=== PATIENT | male | born 1950 | race Caucasian/White ===

== ENCOUNTER → 2016-12-08 | Outpatient (CLI) | payer OTHER ==
--- NOTE | 2016-12-08 11:57 | DIAGNOSTIC IMAGING REPORT ---
RIGHT KNEE 2 VIEWS HISTORY: M25.561 Right knee [id number] Right COMPARISON: None. FINDINGS: There is no fracture or dislocation. Soft tissues are unremarkable. No radiopaque foreign bodies. No knee effusion. Mild osteoarthritis within the medial compartment of the knee. IMPRESSION: No fractures. Mild medial osteoarthritis. Electronically signed by: Derek Santana M.D. 12/08/2016 11:54 AM Dictated Date/Time: 12/08/2016 11:54 AM
== END | disposition home or self-care (01) ==
LOC: C.RAD1850 11:21
PROVIDERS: ATTEND Physician Assistant Medical
DX: M25.561 Pain in right knee (principal)

== ENCOUNTER → 2016-12-09 | Outpatient (CLI) | payer OTHER ==
--- NOTE | 2016-12-09 13:15 | DIAGNOSTIC IMAGING REPORT ---
Soft tissue ultrasound right knee RIGHT EXTREMITY NONVASCULAR LIMITED CLINICAL HISTORY: RT KNEE PAIN Right pain TECHNIQUE: Soft tissue ultrasound COMPARISON STUDY: None FINDINGS: Normal study IMPRESSION: Normal study. No evidence for cyst abscess or collection Electronically signed by: Santiago Castellanos M.D. 12/09/2016 1:13 PM Dictated Date/Time: 12/09/2016 1:12 PM
== END | disposition home or self-care (01) ==
LOC: C.ULTR 12:37
PROVIDERS: ATTEND Physician Assistant Medical
DX: M25.561 Pain in right knee (principal)

== ENCOUNTER → 2017-07-07 | Outpatient (CLI) | payer OTHER ==
[2017-07-07 09:43] LABS: ALT/SGPT 38 U/L (12-78); BLOOD UREA NITROGEN 11 mg/dl (7-18); BUN/CREATININE RATIO 13.1 (10-20); CALCIUM 8.6 mg/dl (8.5-10.1); CARBON DIOXIDE 29 mmol/L (21-32); CHLORIDE 107 mmol/L (98-107); CHOLESTEROL 167 mg/dl (0-200); CREATININE 0.84 mg/dl (0.60-1.40); GLUCOSE 94 mg/dl (70-99); POTASSIUM 3.9 mmol/L (3.5-5.1); SODIUM 142 mmol/L (136-145); TRIGLYCERIDES 170 mg/dl (0-150); VERY LOW DENSITY LIPOPROT CALC 34 mg/dl
[2017-07-07 09:54] LABS: ALB/GLOB RATIO 1.1 (0.9-2); ALKALINE PHOSPHATASE 75 U/L (45-117); AST/SGOT 22 U/L (15-37); CHOLESTEROL/HDL RATIO 3.2; HDL CHOLESTEROL 53 mg/dl; LDL CHOLESTEROL CALCULATED 80 mg/dl; PROSTATE SPECIFIC ANTIGEN 0.916 ng/ml (0.000-4.000)
[2017-07-07 10:17] LABS: BASO % 0.7 %; BASO ABS # 0.06 K/uL (0-0.2); COMPLETE YES; EOS % 1.7 %; HEMATOCRIT 46.3 % (42-52); IG% 0.1 %; LYMPH % 36.3 %; LYMPH ABS # 2.91 K/uL (1.2-3.4); MEAN CELL VOLUME 93.3 fL (80-100); MEAN CORPUSCULAR HEMOGLOBIN 31.7 pg (25-34); MEAN CORPUSCULAR HGB CONC 33.9 g/dl (32-36); MEAN PLATELET VOLUME 10.5 fL (7.4-10.4); MONO % 9.7 %; NEUT % 51.5 %; PLATELET COUNT 258 K/uL (130-400); RED BLOOD COUNT 4.96 M/uL (4.7-6.1); WHITE BLOOD COUNT 8.01 K/uL (4.8-10.8)
== END | disposition home or self-care (01) ==
LOC: C.LAB1850 07:10
PROVIDERS: ATTEND Internal Medicine Pulmonary Disease
DX: Z00.00 Encounter for general adult medical examination without abnormal findings (principal); T78.2XXA Anaphylactic shock, unspecified, initial encounter

== ENCOUNTER → 2018-04-05 | Outpatient (CLI) | payer OTHER ==
--- NOTE | 2018-04-05 12:01 | DIAGNOSTIC IMAGING REPORT ---
L RIBS UNILATERAL WITH PA CHEST CLINICAL HISTORY: Left anterior rib pain. COMPARISON STUDY: No previous studies for comparison. FINDINGS: Lung volumes are normal. No pneumothorax or pleural effusion is noted. Lungs are clear. There is no evidence for pulmonary edema. Cardiac size is within normal limits. No acute left rib fractures are identified. IMPRESSION: No pneumothorax. No acute left rib fractures identified. Electronically signed by: Erasto Brooks M.D. 04/05/2018 12:00 PM Dictated Date/Time: 04/05/2018 11:58 AM
== END | disposition home or self-care (01) ==
LOC: C.RAD1850 09:53
PROVIDERS: ATTEND Physician Assistant Medical
DX: R07.9 Chest pain, unspecified (principal)

== ENCOUNTER 2020-08-09 16:35 | Inpatient (IN) ==
[2020-08-09] MEDS ORDERED: SODIUM CHLORIDE 0.9% 1000ML 1,000 ML IV STA (16:48)
[2020-08-09] MEDS ORDERED: NITROGLYCERIN SL 0.4 MG/TAB TAB SL PRN ×2 (17:22→22:54)
[2020-08-09] MEDS ORDERED: ASPIRIN CHEW 324 MG PO STA (17:22)
--- NOTE | 2020-08-09 17:34 | XRay Report ---
XR chest 1V portable HISTORY: Atypical Chest Pain COMPARISON: Chest 04/05/2018. FINDINGS: No pneumothorax or no pleural effusions. The lungs are clear. No focal lung consolidations to suggest pneumonia. The cardiac silhouette is mildly enlarged. This has progressed in the interval. IMPRESSION: Mild cardiomegaly. ACT 112: Negative or not required by law. Electronically signed by: Derek Santana M.D. 08/09/2020 5:33 PM
[2020-08-09 17:43] LABS: Basophils # (auto) 0.02 K/uL (0-0.2); Basophils % (auto) 0.2 %; Eosinophils # (auto) 0.09 K/uL (0-0.5); Eosinophils % (auto) 0.7 %; Hematocrit (blood only) 46.1 % (42-52); Hemoglobin 15.8 g/dL (14.0-18.0); Immature Granulocytes # (auto) 0.03 K/uL (0.00-0.02); Immature Granulocytes % (auto) 0.2 %; Lymphocytes # (auto) 1.98 K/uL (1.2-3.4); Lymphocytes % (auto) 15.4 %; Mean Corpuscular Hemoglobin 31.5 pg (25-34); Mean Corpuscular Hgb Conc 34.3 g/dL (32-36); Mean Platelet Volume 10.4 fL (7.4-10.4); Monocytes # (auto) 1.26 K/uL (0.11-0.59); Monocytes % (auto) 9.8 %; Neutrophils % (auto) 73.7 %; Platelet Count 207 K/uL (130-400); RDW Coefficient of Variation 13.9 % (11.5-14.5); Red Blood Count 5.01 M/uL (4.7-6.1); White Blood Count 12.88 K/uL (4.8-10.8)
[2020-08-09 17:55] LABS: D Dimer 480 ug/L FEU (0-500); Partial Thromboplastin Ratio 1.1; Prothrombin Time 10.8 Seconds (9.0-12.0)
[2020-08-09 17:59] LABS: Alanine Aminotransferase 23 U/L (12-78); Aspartate Aminotransferase 14 U/L (15-37); BUN Creatinine Ratio 17.9 (10-20); Blood Urea Nitrogen 16 mg/dl (7-18); Calcium 8.7 mg/dl (8.5-10.1); Carbon Dioxide 26 mmol/L (21-32); Chloride 107 mmol/L (98-107); Creatinine Clr Calc Pharmacy 74.7 ml/min; Est GFR (African American) 100.4; Est GFR (Non-African American) 86.6; Glucose 98 mg/dl (70-99); Lipase 168 U/L (73-393); Potassium 3.8 mmol/L (3.5-5.1); Sodium 139 mmol/L (136-145)
[2020-08-09 18:04] LABS: Albumin Globulin Ratio 1.3 (0.9-2); Alkaline Phosphatase 69 U/L (45-117); Bilirubin,Total 0.6 mg/dl (0.2-1); Globulin 3.1 gm/dl (2.5-4.0); Total Protein 7.1 gm/dl (6.4-8.2); Troponin I < 0.015 ng/ml (0-0.045)
[2020-08-09] MEDS ORDERED: NITROGLYCERIN 2% OINTMENT 30GM TUBE EXT STA (19:43)
--- NOTE | 2020-08-09 20:23 | Emergency Department Note ---
Impression & Plan Chest pain, precordial, Atrial fibrillation, new onset, Leukocytosis ED Provider Note INFORMANT: Patient ED PROVIDER(S): Harrison Menjivar MD CHIEF COMPLAINT: Chest pain PLAN: Disposition: Admitted Condition: Good MEDICAL DECISION MAKING: Patient presented with chest pain. An ECG was performed and revealed new onset atrial fibrillation. There was no significant ST elevation or depression. Patient was given nitroglycerin sublingual and aspirin. This resolved his pain completely. He was still noted to be in A. fib. He was relatively well controlled in the right aspect. He had heart rates in the 80s to 90s. The fastest I saw him go was 110 but that was only for a few beats. The patient's chest x-ray was unremarkable. His CBC, chemistry panel and troponin were unremarkable except for a slight leukocytosis. The patient does not have any infectious symptoms. He has had no fever or flulike problems. Given the chest pain, new onset A. fib and his relief with nitroglycerin I feel that further management in the hospital is appropriate. [facility] Patient was evaluated in the ER and admitted for further management. Triage Nursing notes reviewed and agree them. Vital Signs: reviewed and remarkable for no significant abnormalities Differential diagnosis: Cardiac ischemia, aortic dissection, pulmonary embolism, pneumothorax, pneumonia, pericarditis, myocarditis, esophageal rupture, GERD, cholecystitis, pancreatitis, musculoskeletal, as well as other pathologies. Diagnostics interpreted by me: ECG: Twelve-lead ECG reveals atrial fibrillation with a rate of 98. No ST elevation or depression. No PACs or PVCs. When compared to April 2019 the A. fib is new. Cardiac Monitoring: Cardiac monitoring ordered by me: The patient was placed on continuous cardiac monitoring and observed. It revealed atrial fibrillation with rates ranging from 80-110 beats per minute. Imaging studies: Chest x-ray. Findings: A chest x-ray was performed and revealed no pneumothorax, effusion, infiltrate, pulmonary edema, free air under the diaphragm, or wide mediastinum. Impression: No acute disease. [facility]PI: The patient is a 70 year old male who presents to the Emergency Room with complaints of chest pain. This started about 4 hours ago and is persisting. The patient also notes the following associated symptoms, chest tightness. The patient has found no relieving factors. Current pain is rated as 5/10. The patient has no known coronary history. He does have a significant family histor y of cardiac disease. Pt denies LOC, headache, fevers, chills, diaphoresis, visual changes, neck pain, Covid exposure, loss of taste or smell, flulike symptoms, breathing difficulties, nausea, vomiting, abdominal pain, back pain, melena, hematochezia, urinary symptoms, numbness, weakness, lymphadenopathy, rash, or other complaints. ROS: See above HPI for pertinent positives & negatives. A total of 10 systems reviewed and were otherwise negative. PAST MEDICAL HISTORY:See Below, esophageal reflux PAST SURGICAL HISTORY:See Below, FAMILY HISTORY:See Below SOCIAL HISTORY:See Below, HOME MEDICATIONS:See Below ALLERGIES:See Below VITALS:See Below PHYSICAL EXAMINATION: GENERAL: Awake, alert, well-appearing, in no distress HENT: Normocephalic, atraumatic. Oropharynx unremarkable. EYES: Normal conjunctiva. Sclera non-icteric. NECK: Inspection normal. Non-tender. Supple. No nuchal rigidity. FROM. No masses. RESPIRATORY: Clear to auscultation. No wheezes. No rales. Normal respiratory effort. CARDIAC: Normal rate. Irregular rhythm. No murmurs. No rubs. Extremities warm and well perfused. Pulses equal. No JVD. GI: Soft, non-distended. No tenderness to palpation. No rebound or guarding. No masses. RECTAL: Deferred. MUSCULOSKELETAL: Atraumatic. Chest examination reveals no tenderness. The back is symmetrical on inspection without obvious abnormality. There is no CVA tenderness to palpation. No joint edema. LOWER EXTREMITIES: Calves are equal size bilaterally and non-tender. No edema. No discoloration. NEURO: Normal sensorium. No sensory or motor deficits noted. SKIN: No rash or jaundice noted. Harrison Menjivar MD Past Med/Surg History Medical History (Updated 08/09/20 @ 20:46 by Lawrence Graham DO) Anaphylaxis BPH (benign prostatic hyperplasia) Cervical disc disease Dyslipidemia Esophageal reflux Herpes zoster Lumbar radicular pain Lumbar radiculopathy Pneumonia Spinal stenosis Surgical History History of lymph node biopsy Family History Other Coronary heart disease Lung cancer Social History Smoking Status: Never smoker Hx Alcohol Use: Yes Hx Substance Use: No Preferred Language: Mongolian Communication Ability: Effective Hearing Ability: Normal Eyeglass Lens Cutter Required: No Beliefs That Will Affect Care: None marital status: Current Living Situation: Spouse Current Living Situation Comment: home with current occupational status: retired Feels Safe at Home: Yes Safety Concerns: Feels Safe At This Time Allergies Allergies Allergy/AdvReac Type Severity Reaction Status Date / Time bacitracin Allergy Unknown HAPPENED Verified 08/09/20 18:13 [From Neosporin SO LONG ([id number])] AGO-CAN'T REMEMBER neomycin Allergy Unknown HAPPENED Verified 08/09/20 18:13 [From Neosporin SO LONG ([id number])] AGO-CAN'T REMEMBER polymyxin B Allergy Unknown HAPPENED Verified 08/09/20 18:13 [From Neosporin SO LONG ([id number])] AGO-CAN'T REMEMBER Sulfa (Sulfonamide Allergy Unknown HAPPENED Verified 08/09/20 18:13 Antibiotics) SO LONG AGO-CAN'T REMEMBER Home Meds Home Medications Medication Instructions Recorded Confirmed acetaminophen 500 mg tablet 500 - 1,000 mg PO Q6H PRN 06/19/19 08/09/20 naproxen sodium [Aleve] 220 - 440 mg PO Q12H PRN 08/09/20 08/09/20 tadalafil 5 mg PO DAILY PRN 08/09/20 08/09/20 Results & Data (ED) Vital Signs Vital Signs - 24 hr 08/09/20 15:45 08/09/20 16:37 08/09/20 16:52 Temperature 36.8 C Temperature Source Oral Pulse Rate 92 H 99 H 101 H Pulse Rate from SpO2 Sensor Respiratory Rate 22 19 16 Respiratory Effort / Characteristics Non-Labored Respiratory Depth Normal Respiratory Pattern Regular Blood Pressure 146/93 H 173/128 H Blood Pressure Mean 113 143 Pulse Oximetry 98 Oxygen Delivery Method Room Air Sepsis Recent Fever Within 48 Hours No Sepsis New/Unexplained Change in Mental Status N/A Sepsis Action Taken by Nursing No Action Required 08/09/20 17:00 08/09/20 17:30 08/09/20 17:41 Temperature Temperature Source Pulse Rate 87 90 Pulse Rate from SpO2 Sensor Respiratory Rate 19 17 Respiratory Effort / Characteristics Respiratory Depth Respiratory Pattern Blood Pressure Blood Pressure Mean Pulse Oximetry Oxygen Delivery Method Room Air Sepsis Recent Fever Within 48 Hours Sepsis New/Unexplained Change in Mental Status Sepsis Action Taken by Nursing 08/09/20 18:00 08/09/20 18:30 08/09/20 18:53 Temperature Temperature Source Pulse Rate 96 H 82 89 Pulse Rate from SpO2 Sensor Respiratory Rate 17 17 21 Respiratory Effort / Characteristics Respiratory Depth Respiratory Pattern Blood Pressure 134/112 H Blood Pressure Mean 115 Pulse Oximetry Oxygen Delivery Method Sepsis Recent Fever Within 48 Hours Sepsis New/Unexplained Change in Mental Status Sepsis Action Taken by Nursing 08/09/20 18:54 08/09/20 19:00 08/09/20 20:00 Temperature Temperature Source Pulse Rate 90 111 H 93 H Pulse Rate from SpO2 Sensor 91 H Respiratory Rate 17 18 18 Respiratory Effort / Characteristics Respiratory Depth Respiratory Pattern Blood Pressure 145/107 H 151/105 H 144/105 H Blood Pressure Mean 123 122 109 Pulse Oximetry 96 Oxygen Delivery Method Sepsis Recent Fever Within 48 Hours Sepsis New/Unexplained Change in Mental Status Sepsis Action Taken by Nursing 08/09/20 20:15 08/09/20 20:30 Temperature Temperature Source Pulse Rate 92 H 107 H Pulse Rate from SpO2 Sensor 95 H 101 H Respiratory Rate 20 18 Respiratory Effort / Characteristics Respiratory Depth Respiratory Pattern Blood Pressure 138/98 145/115 H Blood Pressure Mean 102 119 Pulse Oximetry 96 97 Oxygen Delivery Method Sepsis Recent Fever Within 48 Hours Sepsis New/Unexplained Change in Mental Status Sepsis Action Taken by Nursing Laboratory Data Result diagrams: 08/09/20 17:30 08/09/20 17:30 Lab Results 08/09/20 08/09/20 08/09/20 Range/Units 17:30 17:30 17:30 WBC 12.88 H (4.8-10.8) K/uL RBC 5.01 (4.7-6.1) M/uL Hgb 15.8 (14.0-18.0) g/dL Hct 46.1 (42-52) % MCV 92.0 (80-100) fL MCH 31.5 (25-34) pg MCHC 34.3 (32-36) g/dL RDW Std Deviation 47.0 H (36.4-46.3) fL RDW Coeff of Reta 13.9 (11.5-14.5) % Plt Count 207 (130-400) K/uL MPV 10.4 (7.4-10.4) fL Immature Gran % (Auto) 0.2 % Neut % (Auto) 73.7 % Lymph % (Auto) 15.4 % [place] % (Auto) 9.8 % Eos % (Auto) 0.7 % Baso % (Auto) 0.2 % Neut # (Auto) 9.50 H (1.4-6.5) K/uL Lymph # (Auto) 1.98 (1.2-3.4) K/uL [place] # (Auto) 1.26 H (0.11-0.59) K/uL Eos # (Auto) 0.09 (0-0.5) K/uL Baso # (Auto) 0.02 (0-0.2) K/uL Immature Gran # (Auto) 0.03 H (0.00-0.02) K/uL PT 10.8 (9.0-12.0) Seconds INR 1.0 (0.9-1.1) APTT 30.0 (21.0-31.0) Seconds PTT Ratio 1.1 D-Dimer 480 (0-500) ug/L FEU Sodium 139 (136-145) mmol/L Potassium 3.8 (3.5-5.1) mmol/L Chloride 107 (98-107) mmol/L Carbon Dioxide 26 (21-32) mmol/L Anion Gap 7.0 (3-11) BUN 16 (7-18) mg/dl Creatinine 0.89 (0.6-1.4) mg/dl Est Cr Clr Drug Dosing 74.7 ml/min Est GFR ( Amer) 100.4 Est GFR (Non-Af Amer) 86.6 BUN/Creatinine Ratio 17.9 (10-20) Glucose 98 (70-99) mg/dl Calcium 8.7 (8.5-10.1) mg/dl Total Bilirubin 0.6 (0.2-1) mg/dl AST 14 L (15-37) U/L ALT 23 (12-78) U/L Alkaline Phosphatase 69 (45-117) U/L Troponin I < 0.015 (0-0.045) ng/ml Total Protein 7.1 (6.4-8.2) gm/dl Albumin 4.0 (3.4-5.0) gm/dl Globulin 3.1 (2.5-4.0) gm/dl Albumin/Globulin Ratio 1.3 (0.9-2) Lipase 168 (73-393) U/L Administered Medications Enoxaparin Sodium (Enoxaparin 80 Mg/0.8 Ml Syr) 70 mg SQ Q12 RUSLAN Stop: 09/09/20 00:00 Last Admin: 08/10/20 00:35 Dose: 70 mg Documented by: [id number] Potassium Chloride/Sodium Chloride (Normal Saline W/20 Meq Kcl) 20 meq in 1,000 mls @ 125 mls/hr IV .Q8H RUSLAN Stop: 08/10/20 06:53 Last Admin: 08/10/20 00:34 Dose: 125 mls/hr Documented by: [id number] Discontinued Medications Aspirin (Aspirin Chew 324 Mg) 324 mg PO NOW STA Stop: 08/09/20 17:23 Last Admin: 08/09/20 17:29 Dose: 324 mg Documented by: [id number] Sodium Chloride (Nss 1000ml) 1,000 mls @ 125 mls/hr IV .Q8H STA Stop: 08/10/20 00:47 Last Infusion: 08/10/20 00:40 Dose: 0 mls/hr Documented by: [id number] Admin: 08/09/20 17:29 Dose: 125 mls/hr Documented by: [id number] Metoprolol Succinate (Metoprolol Succ 50mg Ext Rel Tab) 50 mg PO NOW STA Stop: 08/09/20 20:32 Last Admin: 08/09/20 21:17 Dose: 50 mg Documented by: [id number] Nitroglycerin (Nitroglycerin Sl 0.4 Mg/Tab Tab) 0.4 mg SL PRN PRN PRN Reason: chest pain Stop: 09/08/20 17:21 Last Admin: 08/09/20 17:29 Dose: 0.4 mg Documented by: [id number] Nitroglycerin (Nitroglycerin 2% Ointment 30gm Tube) 0.5 inch EXT NOW STA Stop: 08/09/20 19:44 Last Admin: 08/09/20 19:54 Dose: 0.5 inch Documented by: [id number] Discharge Plan Visit Data Chief Complaint: Chest Pain Stated Complaint: chest pain ED Provider: Harrison Menjivar Discharge Problem: Chest pain, precordial, Atrial fibrillation, new onset, Leukocytosis Patient Disposition: Admitted As Inpatient Discharge Instructions Interventions: ED Discharge Assessment Last Done: 08/09/20 21:46
[2020-08-09] MEDS ORDERED: METOPROLOL SUCC 50MG EXT REL TAB PO STA (20:31)
--- NOTE | 2020-08-09 20:59 | History & Physical Report ---
Date of Service August 09, 2020 Assessment & Plan (1) Atrial fibrillation, new onset: Weston Lewis is a 70 y/o male with past medical hx of dyslipidemia, spinal stenosis, erectile dysfunction, GERD, sciatica who presents to [facility] for CC of Chest pain with diagnosis of new atrial fibrillation here in ED. - Onset of symptoms of chest pain was approx 8-12 hours ago. Atypical chest pain with substernal and relieved by nitro/ASA here in ED, didn't endorse worsening with exertion. - No signs of acute [place] on ECG. - Currently hypertensive 130s-170/93-128; not treated for HTN as outpatient. - CXR showed cardiomegaly, no signs of left of right sided HF on exam. - Will check for treatable causes of ischemic heart disease such as Lipid Panel and Hgb A1C. Not currently on statin. - DENNY Echo ordered; Defer on TTE for consideration for LA thrombus workup to daytime clinical team. - Consult [facility] Cards, has seen them for chest pain last year. Appears to be new onset atrial fibrillation. - Will start on therapeutic Lovenox 1mg/kg BID; suspect will need NOAC as outpatient, defer to day team/based on insurance/keycase assembler help with auth. - Cardiac monitoring - ECG in AM, ECG PRN chest pain, SL as needed for CP. - Trend trops, initial negative. - Will start on Toprol XL 50mg x1 for rate control which should also help with BP. Rates have only been 90s-110s. - ASA 81mg daily. - Dad had [place] at age 69. FENGI: NPO in case of need for intervention tomorrow when more clinical data has resulted from workup. Okay for sips/chips/meds. NSS w/KCl 20meq @125ml/hr x 1 bag, since K 3.8, should get to 4.0. DVT ppx: Therapuetic Lovenox as above Dipso: Full admit, med/surg tele Code: full code (2) Substernal chest pain relieved by nitroglycerin: atypical chest pain as noted above. (3) Leukocytosis: No signs of infection or symptoms for infectious process. Suspect endogenous cortisol stress related demargination. Trend. (4) Dyslipidemia: Lipid panel ordered, evalate for Statin therapy. (5) Erectile dysfunction: Hold home tadalafil (6) Esophageal reflux: Noted in hx, doesn't appear to be on daily med for this. (7) BPH (benign prostatic hyperplasia): noted in hx, doesn't appear to be on alpha mina. History of Present Illness Chief Complaint: Chest Pain Primary Care Provider: Harrison Reyes MD Weston Lewis is a 70 y/o male with past medical hx of dyslipidemia, spinal stenosis, erectile dysfunction, GERD, sciatica who presents to [facility] for CC of Chest pain. He notes onset of chest pain this morning or earlier afternoon, he is unsure of exact time. He notes pain was substernal and felt like an ache. He notes that pain was worse when taking a deep breath and because of this felt like he couldn't take a deep breath. But denies shortness of breath, nausea, vomiting, palpitations, diaphoresis, radiation of pain, calf pain or swelling. His is a RN of 45 years who urged him to come here to [facility] ED. He notes that his pain was relieved with ASA and NTG. He currently has no chest pain. He was found to have new onset Afib here in the ED. He denies any prior hx of atrial fibrillation. He notes that last year he had similar chest pain while on a cruise that was worrisome enough to visit the cruise [facility]. He notes that this chest pain was caused by polypharmacy treatment for sciatic nerve pain. He ended up seeking cardiology eval with [facility] Cards Dr. Prasad as again his , RN, was strong advocate for him for consult. He did not procede with a stress test at that time because of his sciatic pain and concerns for walking on a treadmill. His father at age 69 from [place]. He denies any recent illness. Allergies Allergy/AdvReac Type Severity Reaction Status Date / Time bacitracin Allergy Unknown HAPPENED Verified 08/09/20 18:13 [From Neosporin SO LONG ([id number])] AGO-CAN'T REMEMBER neomycin Allergy Unknown HAPPENED Verified 08/09/20 18:13 [From Neosporin SO LONG ([id number])] AGO-CAN'T REMEMBER polymyxin B Allergy Unknown HAPPENED Verified 08/09/20 18:13 [From Neosporin SO LONG ([id number])] AGO-CAN'T REMEMBER Sulfa (Sulfonamide Allergy Unknown HAPPENED Verified 08/09/20 18:13 Antibiotics) SO LONG AGO-CAN'T REMEMBER Home Medications Medication Instructions Recorded Confirmed Type acetaminophen 500 mg tablet 500 - 1,000 mg PO Q6H PRN 06/19/19 08/09/20 History naproxen sodium [Aleve] 220 - 440 mg PO Q12H PRN 08/09/20 08/09/20 History tadalafil 5 mg PO DAILY PRN 08/09/20 08/09/20 History apixaban [Eliquis] 5 mg PO BID #60 tab 08/10/20 Rx diltiazem HCl 180 mg PO DAILY #30 cap 08/10/20 Rx Past Med/Surg History Medical History (Updated 08/11/20 @ 00:05 by Tobi Datevin) Anaphylaxis BPH (benign prostatic hyperplasia) Cervical disc disease Chest pain, precordial Dyslipidemia Esophageal reflux Herpes zoster Leukocytosis Lumbar radicular pain Lumbar radiculopathy Pneumonia Spinal stenosis Surgical History History of lymph node biopsy Family History Other Coronary heart disease Lung cancer Social History Smoking Status: Never smoker Hx Alcohol Use: Yes Hx Substance Use: No Preferred Language: Spanish Communication Ability: Effective Hearing Ability: Normal Flagsetter Required: No Beliefs That Will Affect Care: None marital status: Current Living Situation: Spouse Current Living Situation Comment: home with current occupational status: retired Feels Safe at Home: Yes Assistive Devices: None Review of Systems Review of Systems: All systems reviewed & are unremarkable except as noted in HPI & below Constitutional: no fever and no chills Eyes: no blind spots and no diplopia Ear, Nose, Mouth, Throat: no nasal congestion, no nasal obstruction and no epistaxis Respiratory: no cough and no dyspnea Cardiovascular: as per Subjective / HPI; no lightheadedness, no syncope, no edema and no calf pain Gastrointestinal: no abdominal pain, no nausea and no vomiting Genitourinary: no dysuria and no urinary frequency Musculoskeletal: no back pain and no neck pain Integumentary: no rash and no lesions Neurologic: no falls, no generalized weakness, no numbness and no syncope Psychiatric: no depression and no anxiety Endocrine: no polydipsia, no polyphagia and no polyuria Physical Exam Constitutional: WD/WN, vitals as above cooperative and comfortable Eyes: PERRL, conjunctivae normal, anicteric sclerae ENMT: external ear and nose normal, oropharynx normal Neck: trachea midline, no thyromegaly Respiratory: normal respiratory effort, lungs clear to auscultation Cardiovascular: Rate/Rhythm: + tachycardic and + irregularly irregular Extremities: no calf tenderness and no edema Gastrointestinal (Abdomen): Percussion/Palpation: abdomen soft; abdomen nontender, no guarding and abdomen not rigid Musculoskeletal: Head/Neck/Chest: normocephalic and head atraumatic Skin: closed/open comedones and SKs diffusely on back Neurologic: CN's II-XI intact bilaterally, moves all extremities and awake Psychiatric: Orientation: alert and oriented x 3 Affect: + anxious affect Mood: + anxious mood Results & Data Results & Data ([facility]) Vital Signs (Past 12 Hours) Vital Signs Temp Pulse Resp BP Pulse Ox 08/09/20 18:54 90 17 145/107 H 08/09/20 18:53 89 21 134/112 H 08/09/20 18:30 82 17 08/09/20 18:00 96 H 17 08/09/20 17:30 90 17 08/09/20 17:00 87 19 08/09/20 16:52 101 H 16 08/09/20 16:37 36.8 C 99 H 19 173/128 H 98 08/09/20 15:45 92 H 22 146/93 H Laboratory Results Laboratory Results - last 24 hr 08/09/20 08/09/20 08/09/20 17:30 17:30 17:30 WBC 12.88 H RBC 5.01 Hgb 15.8 Hct 46.1 MCV 92.0 MCH 31.5 MCHC 34.3 RDW Std Deviation 47.0 H RDW Coeff of Reta 13.9 Plt Count 207 MPV 10.4 Immature Gran % (Auto) 0.2 Neut % (Auto) 73.7 Lymph % (Auto) 15.4 [place] % (Auto) 9.8 Eos % (Auto) 0.7 Baso % (Auto) 0.2 Neut # (Auto) 9.50 H Lymph # (Auto) 1.98 [place] # (Auto) 1.26 H Eos # (Auto) 0.09 Baso # (Auto) 0.02 Immature Gran # (Auto) 0.03 H PT 10.8 INR 1.0 APTT 30.0 PTT Ratio 1.1 D-Dimer 480 Sodium 139 Potassium 3.8 Chloride 107 Carbon Dioxide 26 Anion Gap 7.0 BUN 16 Creatinine 0.89 Est Cr Clr Drug Dosing 74.7 Est GFR ( Amer) 100.4 Est GFR (Non-Af Amer) 86.6 BUN/Creatinine Ratio 17.9 Glucose 98 Calcium 8.7 Total Bilirubin 0.6 AST 14 L ALT 23 Alkaline Phosphatase 69 Troponin I < 0.015 Total Protein 7.1 Albumin 4.0 Globulin 3.1 Albumin/Globulin Ratio 1.3 Lipase 168 Diagnostic Findings CXR: Cardiomegaly Medications Administered Sodium Chloride (Nss 1000ml) 1,000 mls @ 125 mls/hr IV .Q8H STA Stop: 08/10/20 00:47 Last Admin: 08/09/20 17:29 Dose: 125 mls/hr Documented by: [id number] Nitroglycerin (Nitroglycerin Sl 0.4 Mg/Tab Tab) 0.4 mg SL PRN PRN PRN Reason: chest pain Stop: 09/08/20 17:21 Last Admin: 08/09/20 17:29 Dose: 0.4 mg Documented by: [id number] ECG Indication: chest pain Rate (beats per minute): 98 Rhythm: atrial fibrillation Findings: + PVC and + left axis deviation; no peaked T-waves Code Status & VTE Plan Code Status Full VTE Prophylaxis Plan VTE Prophylaxis will be ordered: Yes Supervising Physician Co-Signing Physician Notes Attending addendum: I have physically seen this patient, have supervised the medical residents activities, and agree with the H&P unless as otherwise noted. Assessment and Plan: New onset atrial fibrillation/elevated blood pressure/atypical chest pain- The patient will be admitted to telemetry for serial cardiac enzymes, serial EKG's, cardiac rhythm monitoring and a 2-D echocardiogram with Dopplers. Lovenox 1 mg/kg subcu twice daily, transition to Eliquis during daytime Start metoprolol succinate 50 mg daily, first dose now Aspirin 81 mg daily Nitroglycerin sublingual every 5 minutes for chest pain as needed Dyslipidemia- Start high-dose statin Remainder of orders and notations as noted Resident Activity Tracking Resident Involvement: Resident Care Provided Care Provided: Adult [facility] Medicine
[2020-08-09] MEDS ORDERED: MAGNESIUM HYDROXIDE SUSP 30 ML UDC PO PRN (22:54)
[2020-08-09] MEDS ORDERED: ALUMINUM/MAGNESIUM SUSP 30 ML UDC PO PRN (22:54)
[2020-08-09] MEDS ORDERED: MIRTAZAPINE TAB 15 MG TAB PO PRN (22:54)
[2020-08-09] MEDS ORDERED: ENOXAPARIN 1 MG/KG SC SCH (22:54)
[2020-08-09] MEDS ORDERED: ACETAMINOPHEN 325 MG TAB PO PRN (22:54)
[2020-08-09] MEDS ORDERED: POLYETHYLENE (MIRALAX) 17 GM PACK PO PRN (22:54)
[2020-08-09] MEDS ORDERED: NSS + 20MEQ KCL 20 MEQ/1,000 ML BAG IV SCH (22:54)
[2020-08-09] MEDS ORDERED: ONDANSETRON INJ 2 MG/ML 2 ML VIAL IV PRN (22:54)
[2020-08-09] MEDS ORDERED: MELATONIN 3 MG TAB PO PRN (22:54)
[2020-08-10] MEDS: ENOXAPARIN 80 MG/0.8 ML SYR SQ SCH ×2 (00:35→08:17)
[2020-08-10 06:25] LABS: Basophils # (auto) 0.03 K/uL (0-0.2); Basophils % (auto) 0.3 %; Eosinophils # (auto) 0.09 K/uL (0-0.5); Hematocrit (blood only) 43.5 % (42-52); Hemoglobin 14.8 g/dL (14.0-18.0); Immature Granulocytes # (auto) 0.02 K/uL (0.00-0.02); Immature Granulocytes % (auto) 0.2 %; Lymphocytes # (auto) 2.15 K/uL (1.2-3.4); Lymphocytes % (auto) 24.7 %; Mean Corpuscular Hemoglobin 31.4 pg (25-34); Mean Corpuscular Volume 92.2 fL (80-100); Mean Platelet Volume 10.6 fL (7.4-10.4); Monocytes % (auto) 17.2 %; Neutrophils # (auto) 4.91 K/uL (1.4-6.5); Neutrophils % (auto) 56.6 %; Platelet Count 204 K/uL (130-400); RDW Coefficient of Variation 14.2 % (11.5-14.5); RDW Standard Deviation 48.2 fL (36.4-46.3); Red Blood Count 4.72 M/uL (4.7-6.1)
[2020-08-10 06:40] LABS: Partial Thromboplastin Ratio 1.3; Partial Thromboplastin Time 36.4 Seconds (21.0-31.0)
[2020-08-10 06:49] LABS: Estimated Average Glucose 103 mg/dl; Hemoglobin A1C 5.2 % (4.5-5.6)
[2020-08-10 07:04] LABS: BUN Creatinine Ratio 15.5 (10-20); Calcium 8.3 mg/dl (8.5-10.1); Creatinine Clr Calc Pharmacy 78.2 ml/min; Est GFR (African American) 102.3; Est GFR (Non-African American) 88.3; Potassium 4.1 mmol/L (3.5-5.1)
[2020-08-10] MEDS ORDERED: ASPIRIN 81 MG ECTAB PO SCH (09:00)
--- NOTE | 2020-08-10 11:44 | Discharge Summary ---
Date of Service August 10, 2020 Admission HPI Per Admitting Provider Weston Lewis is a 70 year old male with a history of Dyslipidemia, Leukocytosis, GERD, Spinal Stenosis, BPH, and Erectile Dysfunction who presents to [facility] ER after developing chest pain which began at least 6 hours before presentation. He describes the chest pain as a "substernal ache" that worsens with inspiration and because of this -- he felt like he couldn't take a deep breath. Patient denies shortness of breath, nausea, vomiting, palpitations, diaphoresis, radiation of pain, calf pain or swelling. His is an RN of 45 years who urged him to come here to [facility] ED. He notes that his pain was reliev ed with ASA and NTG. He currently has no chest pain. He was found to have new onset A-fib here in the ED. He denies any prior history of atrial fibrillation. He notes that last year he had similar chest pain while on a cruise that was worrisome enough to visit the cruise [facility]. He notes that this chest pain was caused by polypharmacy treatment for sciatic nerve pain. He ended up seeking cardiology evaluation with [facility] Clinic Administrator Dr. Prasad as again his , RN, was a strong advocate for him for consult. He did not proceed with a stress test at that time because of his sciatic pain and concerns for walking on a treadmill. His father at age 69 from [place]. He denies any recent illness. Principal Diagnosis 1. Atypical chest pain. 2. New onset Atrial Fibrillation. Discharge Exam GENERAL: Patient in no acute distress. HEENT: Head is atraumatic, normocephalic. EOM's intact. Facies symmetric. No perioral cyanosis. NECK: No JVD. JVP is at the level of the clavicle sitting upright. Carotid upstrokes are + 2 bilaterally. No bruits are noted. CHEST/LUNGS: Clear to auscultation throughout all lung mcmullen. No wheezes, rales, or crackles. CVS: S1 and S2 are irregularly irregular with an apical rate of 88 bpm. No obvious murmurs, gallops, or rubs. PMI is nondisplaced. No lifts, heaves, or thrills. No abdominal aortic or renal bruits. ABDOMINAL EXAM: Bowel sounds are present. No masses, organomegaly, or tenderness. EXTREMITIES: No clubbing or cyanosis. No edema. Intact posterior tibial and radial pulses bilaterally. NEUROLOGIC EXAM: Patient is awake, alert, and oriented. Pleasant and cooperative. Answers questions appropriately. Speech is clear. Normal movement in all 4 extremities. Discharge Data Allergies Allergy/AdvReac Type Severity Reaction Status Date / Time bacitracin Allergy Unknown HAPPENED Verified 08/09/20 18:13 [From Neosporin SO LONG ([id number])] AGO-CAN'T REMEMBER neomycin Allergy Unknown HAPPENED Verified 08/09/20 18:13 [From Neosporin SO LONG ([id number])] AGO-CAN'T REMEMBER polymyxin B Allergy Unknown HAPPENED Verified 08/09/20 18:13 [From Neosporin SO LONG ([id number])] AGO-CAN'T REMEMBER Sulfa (Sulfonamide Allergy Unknown HAPPENED Verified 08/09/20 18:13 Antibiotics) SO LONG AGO-CAN'T REMEMBER Consultations 08/09/20 19:43 ED Decision to Admit Stat 08/09/20 22:54 Consult Cardiology Routine Procedures Performed EKG 08/10/2020: -- Atrial fibrillation at 89 bpm, with bifascicular block (RBBB with LAFB) and left axis deviation. EKG 08/09/2020: -- Atrial fibrillation at 98 bpm with Bifascicular Block (RBBB with LAFB) and left axis deviation. CXR 08/09/2020: -- Mild cardiomegaly but otherwise unremarkable. Serial Troponin I levels: < 0.015 mg/mL x 3. Hospital Course (1) Atrial fibrillation, new onset: Patient was admitted with an Atypical Chest Pain Syndrome on 08/09/2020 and incidentally was noted to be in New Onset Atrial Fibrillation - which is a new diagnosis for him. Patient initially given Aspirin 81 mg and Nitroglycerin 0.4 mg SL and symptoms resolved. Admitted to rule out myocardial event, and placed in a telemetry room where he remained in A-Fib with V-rates in the 80's to low 100's. Serial Troponin I levels were undetectable at < 0.015 ng/mL x 3. Patient seen in consultation by Dr. Prasad [facility] Clinic Administrator -- who recommended CCB for rate control and longwall foreman anticoagulation. At the time of discharge patient was in rate controlled and asymptomatic A-Fib. He did not experience any further atypical chest discomfort and ischemic work-up was negative. Initial WBC elevation resolved, probably a stress reaction / demargination. Patient discharged to home, self care on the following medications for A-Fib: -- Diltiazem CD 180 mg daily. -- Eliquis 5 mg b.i.d.. (2) Chest pain, precordial: Atypical chest pain -- worse with breathing and bending over, no radiation of discomfort, and no associated symptoms. It was not exertional, and ischemic work-up is negative. (3) Leukocytosis: Initial WBC elevation resolved, probably a stress reaction / demargination. -- no further work-up is necessary at this time. Total Time Total Time Spent Total Time Spent (In Minutes): 45 Total Time Includes: Examination of the Patient, Discharge Planning and Medication Reconciliation Discharge Plan Discharge Items Patient Disposition: Home - Self-Care Reason For Visit: NEW ONSET AFIB Discharge Diagnosis: New onset Atrial Fibrillation Condition on Discharge: Good Goals: Compliance with medications for Atrial Fibrillation including: -- Diltiazem CD 180 mg daily for HR control and to lower blood pressure. -- Eliquis 5 mg twice daily to reduce the risk of stroke associated with atrial dysrhythmias. Activity: Resume your previous activity Lifting Comment: No restriction Bathing: No limitations Sexual Activity: When tolerated Exercise/Sports: As tolerated Driving/Machine Use: No limitations Weightbearing: Full weightbearing Non-emergency contact: Primary Care Provider Call non-emergency contact if: you have any medication questions and your symptoms worsen Follow-up/Referrals: Brennan Freedman PA-C [Physician Registered Public Surveyor] - 09/01/20 2:30 pm (Hospital Follow-up with Brennan Freedman PA-C on 09/01/2020 at 2:30 pm. [facility] [address] [place] [address]) Harrison Reyes MD [Primary Care Provider] - 08/13/20 2:00 pm Diet: Regular Diet Comment: Resume your usual diet, try to reduce sodium intake. Addtl Attending Provider Instructions: You were admitted to [facility] with an atypical chest pain syndrome (chest pain that is not cardiac in origin) and you were incidentally noted to be in Atrial Fibrillation. -- This is the most common abnormal heart rhythm in the world. -- A-Fib increases your risk of stroke but you were started on the blood-thinner Eliquis 5 mg twice a day to markedly reduce that risk. -- Additionally A-Fib will cause your heart to beat faster both at rest and with exertion so you were started on Diltiazem CD 180 mg daily to slow your heart rate and lower your blood pressure. Pending Studies at Discharge: No Stand-Alone Forms: My [facility] Medications and DC Order Prescriptions: New diltiazem HCl 180 mg capsule,extended release 24hr 180 mg PO DAILY Qty: 30 RF: 5 Eliquis 5 mg tablet 5 mg PO BID Qty: 60 RF: 5 Continued acetaminophen [Tylenol Extra Strength] 500 mg tablet 500 - 1,000 mg PO Q6H PRN (Reason: Pain) RF: 0 naproxen sodium [Aleve] 220 mg Tablet 220 - 440 mg PO Q12H PRN (Reason: Pain) RF: 0 tadalafil 5 mg tablet 5 mg PO DAILY PRN (Reason: Erectile Dysfunction) RF: 0 Discharge Orders: Discharge Order (Routine); Ordered 08/10/20 Ordered By: Brennan Gomes/Other Patient Handouts: Your Heart's Electrical System, ED Atrial Fibrillation Admission Data Admit Date/Time: 08/09/20 20:33 Attending Provider: Damian Singh Admit Provider: Lawrence Graham Primary Care Provider: Harrison Reyes Other Providers: Polo Davis ; Donavon Zhu Other Interventions: Discharge Summary Assessment (RN) Last Done: 08/10/20 11:38 Supervising Physician Co-Signing Physician Notes Patient was seen and examined independently I discussed the case with Brennan Freedman PAC I reviewed pertinent past medical social family history and also the plan of care and agree with the plan of care. Patient was seen his rate was controlled he is agreeable to starting anticoagulation and diltiazem follow-up with cardiology as an outpatient he was in stable condition at time of discharge Any exceptions will be noted below Coding Level of Care Code 46552 OBS Care - Discharge Diagnoses Atrial fibrillation, new onset I48.91 Chest pain, precordial R07.2 Leukocytosis D72.829 Time Spent (min) 50
--- NOTE | 2020-08-10 14:48 | Cardiology Consultation ---
Date of Consultation August 10, 2020 Assessment & Plan (1) Atrial fibrillation, new onset: -rate now under 100 bpm. -would discharge on a rate-controlling medication. -the patient would prefer diltiazem over metoprolol due to potential side effects. -would discharge on a novel oral anticoagulant. -follow-up in 2-3 weeks. (2) Chest pain, precordial: -his description was atypical. -fortunately his troponin levels were undetectable despite a rapid ventricular response. -no ischemic workup indicated at this time. -his symptoms could have been related to his atrial fibrillation. History of Present Illness Attending Physician: Damian Singh MD History of Present Illness Mr. Lewis is a 70-year-old male admitted yesterday with new onset atrial fibrillation and rapid ventricular response. This consultation was ordered to assist in his management. Of note, I met the patient for consultation back in May 2019. The patient was in his usual state of health until the morning of presentation. After he awoke, the patient noted a pressure type discomfort in his upper chest. He noted this discomfort to have a pleuritic component and also intensified if he bent over to pick something up off the floor. There were no other associated symptoms such as shortness of breath, nausea, vomiting, or diaphoresis. The patient eventually presented to the emergency room and was noted to be in atrial fibrillation with a rapid ventricular response. The patient was treated with oxygen and sublingual nitroglycerin and his symptoms resolved. He had also received an intravenous beta-mina. The patient has never known of the diagnosis of paroxysmal atrial fibrillation. He has never experienced palpitations including his current hospitalization. The patient is resting comfortably in bed without complaints. He is anxious for hospital discharge. We have a long discussion regarding the management of paroxysmal atrial fibrillation. Past medical and surgical history 1. GERD 2. Lymph node biopsy-1976 3. Low back pain Social history and lives with his Retired teacher No tobacco Occasional alcohol Family history Father at 69 from an [place] Mother at 90 from lung carcinoma A sister 77 with cancer Review of systems A 10 point review of systems was negative except for that described above. Allergies Allergy/AdvReac Type Severity Reaction Status Date / Time bacitracin Allergy Unknown HAPPENED Verified 08/09/20 18:13 [From Neosporin SO LONG ([id number])] AGO-CAN'T REMEMBER neomycin Allergy Unknown HAPPENED Verified 08/09/20 18:13 [From Neosporin SO LONG ([id number])] AGO-CAN'T REMEMBER polymyxin B Allergy Unknown HAPPENED Verified 08/09/20 18:13 [From Neosporin SO LONG ([id number])] AGO-CAN'T REMEMBER Sulfa (Sulfonamide Allergy Unknown HAPPENED Verified 08/09/20 18:13 Antibiotics) SO LONG AGO-CAN'T REMEMBER Home Medications Medication Instructions Recorded Confirmed Type acetaminophen 500 mg tablet 500 - 1,000 mg PO Q6H PRN 06/19/19 08/09/20 History naproxen sodium [Aleve] 220 - 440 mg PO Q12H PRN 08/09/20 08/09/20 History tadalafil 5 mg PO DAILY PRN 08/09/20 08/09/20 History apixaban [Eliquis] 5 mg PO BID #60 tab 08/10/20 Rx diltiazem HCl 180 mg PO DAILY #30 cap 08/10/20 Rx Patient History Medical History (Updated 08/09/20 @ 20:46 by Lawrence Graham DO) Anaphylaxis BPH (benign prostatic hyperplasia) Cervical disc disease Dyslipidemia Esophageal reflux Herpes zoster Lumbar radicular pain Lumbar radiculopathy Pneumonia Spinal stenosis Surgical History History of lymph node biopsy Family History Other Coronary heart disease Lung cancer Social History Smoking Status: Never smoker Hx Alcohol Use: Yes Hx Substance Use: No Preferred Language: Malay Communication Ability: Effective Hearing Ability: Normal Machine Binding Folder Required: No Beliefs That Will Affect Care: None marital status: Current Living Situation: Spouse Current Living Situation Comment: home with current occupational status: retired Feels Safe at Home: Yes Assistive Devices: None Physical Exam Physical Exam: In general this is a well-developed well-nourished white male in no acute distress. HEENT exam is negative. Neck is supple with full carotid upstrokes. There are no carotid bruits. Jugular venous pressure is flat at 90. There is no thyromegaly. Cardiovascular exam reveals an irregularly irregular rhythm with distant heart sounds. Lungs are clear without rales, rhonchi, or wheezes. Abdomen is soft and nontender without bruits. Extremities reveal intact radial artery and posterior tibial pulses bilaterally. There is no peripheral edema. Results & Data ([facility]) Vital Signs (Past 12 Hours) Vital Signs Temp Pulse Pulse Resp BP BP Pulse Ox 08/10/20 11:38 36.8 C 93 H 18 150/103 H 126/92 96 08/10/20 11:29 36.8 C 93 H 18 126/92 96 08/10/20 09:00 104 H 08/10/20 07:06 36.8 C 90 18 123/95 96 08/10/20 04:00 36.8 C 96 H 20 135/89 97 Laboratory Results CBC notes hemoglobin 14.8, hematocrit 43.5, white count 8.7, and platelet count of [id number]. Electrolytes note a sodium of 140, potassium 4.1, chloride 109, bicarb 28, BUN 13, creatinine 0.85, glucose of 95. Troponin I level was undetectable at less than 0.015 on 3 occasions. Diagnostic Findings EKG notes atrial fibrillation with a controlled ventricular response. There is a complete right bundle-branch block and left anterior hemiblock. Chest x-ray shows no acute disease. PG Care Time/CCT Total # of Minutes Spent Total Time Spent with Patient: Total time spent is greater than 50% in coordination of care (as documented) at patient's floor/unit and/or counseling patient: Coding Level of Care Code 68349 OBS Care - Level 3 Diagnoses Atrial fibrillation, new onset I48.91 Chest pain, precordial R07.2
--- NOTE | 2020-08-10 18:26 | XCELERA ---
[id number] \\[id number]
--- NOTE | 2020-08-10 19:29 | Electrocardiogram Report ---
Test Reason : Blood Pressure : / mmHG Vent. Rate : 098 BPM Atrial Rate : 084 BPM P-R Int : 000 ms QRS Dur : 160 ms QT Int : 406 ms P-R-T Axes : 000 -77 011 degrees QTc Int : 518 ms Atrial fibrillation with premature ventricular or aberrantly conducted complexes Left axis deviation Right bundle branch block Abnormal ECG No previous ECGs available Confirmed by Todd Lorenzo ([id number]) on 08/10/2020 7:28:38 PM Referred By: REFERRED SELF Confirmed By:Todd Lorenzo
--- NOTE | 2020-08-11 05:22 | Electrocardiogram Report ---
Test Reason : Blood Pressure : / mmHG Vent. Rate : 089 BPM Atrial Rate : 101 BPM P-R Int : 000 ms QRS Dur : 164 ms QT Int : 416 ms P-R-T Axes : 000 -72 009 degrees QTc Int : 506 ms Atrial fibrillation Right bundle branch block Left anterior fascicular block Bifascicular block Abnormal ECG When compared with ECG of 09-AUG-2020 16:44, No significant change Confirmed by Todd Lorenzo ([id number]) on 08/11/2020 5:22:07 AM Referred By: REFERRED SELF Confirmed By:Todd Lorenzo
--- NOTE | 2020-08-12 13:30 | Coding Query ---
CODING QUERY To promote full compliance with coding requirements relating to patient care, provider participation is requested in all cases of resourcing consultant uncertainty. Please assist us with the question(s) below: Coding Question(s): The Discharge Summary documents Atypical Chest Pain and New onset Atrial Fibrillation and under Addtl Attending Provider Instructions there is documentation of, "You were admitted to [facility] with an atypical chest pain syndrome (chest pain that is not cardiac in origin) and you were incidentally noted to be in Atrial Fibrillation" and the Cardiology Consultation on 08/10/20 documents, "Chest pain, precordial: -his description was atypical. -fortunately his troponin levels were undetectable despite a rapid ventricular response. -no ischemic workup indicated at this time. -his symptoms could have been related to his atrial fibrillation". Please specify below, in your clinical opinion, regarding the Atypical Chest Pain. ( xxx) Atypical Chest Pain is likely from Atrial Fibrillation ( ) Atypical Chest Pain is likely from Other: Please Specify ( ) Atypical Chest Pain is Not likely from Atrial Fibrillation and is from Unknown etiology Physician's Response(s): Thank you Vickie Fraga Principal Diagnosis: "that condition established after study, to be chiefly responsible for occasioning the admission of the patient to the hospital for care." Co-Existing Principal Diagnosis: "when two or more diagnoses equally meet the criteria for principal diagnosis as determined by the circumstances of admission, diagnostic work up, and/or therapy provided, and the Alphabetic Index, Tabular List, or another coding guideline does not provide sequencing direction, any one of the diagnoses may be sequenced first." "When the physician has documented what appears to be a current diagnosis in the body of the record, but has not included the diagnosis in the final diagnostic statement, the physician should be asked whether the diagnosis should be added." (Source Coding Clinic 2 QTR90. p3-4) KELVIN
--- NOTE | 2020-08-13 17:36 | Billing Data ---
Date of Service August 13, 2020 Coding Level of Care Code 59199 Initial Inpt Care Lvl 3
== END 2020-08-10 12:38 | disposition home or self-care (01) ==
LOC: ED 16:35 → 2N 20:33 → INTOOBSV 20:33 → OBSVTOIN 20:33 → SUATTDRO 20:33 → 2N 21:46